=== PATIENT | female | born 1975 | race Caucasian/White ===

== ENCOUNTER 2025-01-05 13:57 | Emergency (ER) | payer MEDICAID, OTHER ==
[~2025-01-05] VITALS: Ht 167.6 cm; Wt 90.9 kg
[2025-01-05] MEDS: LIDOcaine 1% 30ml preserv. free vial SQ STA (15:08)
[2025-01-05] MEDS: TETanus/Pertussis (Acell)/Diphther VAC/PF (Tdap-Adult) 0.5ml syringe IMVAC ONE (15:37)
[2025-01-05 15:45] VITALS: BP 126/86; PULSE 78; RESP 16; TEMP 98.4; O2SAT 98
== END 2025-01-05 15:45 | disposition home or self-care (01) ==
LOC: ER 13:57
DX: S61.212A Laceration without foreign body of right middle finger without damage to nail, initial encounter (principal); X58.XXXA Exposure to other specified factors, initial encounter; Y93.89 Activity, other specified; Y92.89 Other specified places as the place of occurrence of the external cause; Y99.8 Other external cause status
CPT/HCPCS: 12001; 90471; 90715; 99283; A6222; A6258; A6449